=== PATIENT | male | born 1950 | race African-American/Black ===

== ENCOUNTER 2023-05-04 08:00 | Outpatient (CLI) | payer OTHER ==
[~2023-05-04] VITALS: Ht 167.6 cm; Wt 83.9 kg
== END 2023-05-04 16:35 | disposition home or self-care (01) ==
LOC: SLB 08:00 → EDSTATUS 05-11 07:30
PROVIDERS: ATTEND Surgery
DX: Z01.818 Encounter for other preprocedural examination (principal); K40.91 Unilateral inguinal hernia, without obstruction or gangrene, recurrent; I49.3 Ventricular premature depolarization; I44.7 Left bundle-branch block, unspecified; I51.7 Cardiomegaly
CPT/HCPCS: 87081; 93005